=== PATIENT | female | born 1935 | race Caucasian/White ===

== ENCOUNTER 2016-07-03 12:18 | Inpatient (IN) | payer MEDICARE ==
[~2016-07-03] VITALS: Ht 165.1 cm; Wt 87.4 kg
[2016-07-06] MEDS ORDERED: AMLO5TAB2 PO (09:30)
[2016-07-06] MEDS ORDERED: TOPR100T PO (09:32)
[2016-07-06] MEDS ORDERED: CLON0.1T PO (12:06)
[2016-07-06] MEDS ORDERED: LORA1TAB12 PO (12:07)
[2016-07-06] MEDS ORDERED: PROT40TA PO (12:08)
[2016-07-06] MEDS ORDERED: LEVO.125 PO (12:08)
[2016-07-06] MEDS ORDERED: VITA100064 PO (12:09)
--- NOTE | 2016-07-14 10:11 | MH ---
cc: ANT GONZALEZ,QUIRINO Woodward MD DATE OF ADMISSION: 07/15/2016 ADMISSION DIAGNOSIS Osteoarthritis of the right knee, varus deformity right knee, pain right knee. HISTORY The patient is an 81-year-old white female who has experienced pain of her right knee of approximately 2-1/2 years duration. She had originally noted the onset of pain involving both knees for which she was diagnosed as having an arthritic condition, becoming more pronounced with the passage of time and had subsequently undergone evaluation and treatment at the [facility] in [place] where she had been treated in the past for history of cancer of her left breast that did require a lumpectomy as well as a benign thyroid condition. She had established herself with a primary care physician in that area and as a result was subsequently referred to a local orthopedic surgeon who completed a left total knee arthroplasty in the fall of 2015 at [facility] in [place] with Dr. Maia Aguilar. The patient had difficulty throughout her postoperative period that was complicated by an ileus that required an extended hospital stay. She presented to the undersigned physician in February of this year reporting ongoing pain about her right knee for which x-ray studies revealed obvious degenerative changes with [id number] apposition about the medial compartment associated with a varus deformity of at least 10 degrees magnitude. Findings and treatment options were reviewed with the patient at that time. Initially she elected to continue with conservative management but continued to note lingering symptoms about her right knee for which she returned to the office in follow-up disposition in April of this year. At that time findings and treatment options were reviewed. The pros and cons of continuing with conservative management versus operative intervention that would involve a total knee arthroplasty were outlined in detail. Emphasis was made regarding the fact that the decision to proceed with surgery would be left entirely to the patient's discretion. She indicated that she was incapacitated to such degree that she was desirous of proceeding with such treatment and in compliance with her wishes she was scheduled for admission at this time in order that a right total knee arthroplasty be accomplished. PAST MEDICAL HISTORY, HOSPITALIZATIONS AND SURGERIES 1. Left total knee arthroplasty as described. 2. Lumpectomy of the left breast followed by radiation therapy for a history of carcinoma. 3. A partial thyroidectomy of her right lobe for history of nodule disease that apparently was nonmalignant in nature 4. Tonsillectomy. 5. Vaginal hysterectomy. 6. Laparoscopic cholecystectomy. 7. Colonoscopy. 8. Bilateral cataract excision with intraocular lens implants. 9. Excision of skin cancers of the right lower extremity. 10. Medical management for hyponatremia apparently related to use of diuretics. MEDICAL ILLNESSES 1. Hypertension. 2. Stress disorder. 3. Hypothyroidism. 4. GERD syndrome. CURRENT MEDICATIONS 1. Toprol XL 100 mg daily. 2. Amlodipine 5 mg daily. 3. Clonidine 0.1 mg twice daily. 4. Lorazepam 1 mg daily. 5. Synthroid 0.125 mg daily. 6. Protonix 40 mg daily. She also takes supplements daily including probiotics, vitamin C and vitamin D. ALLERGIES The patient describes drug allergies to - CODEINE which has been associated with shortness of breath. SULFA has caused nausea and itching. DIURETICS have been associated with hyponatremia. CONTRAST DYE has caused nausea and rash formation. She has tolerated both Dilaudid and Demerol for pain management in the past. REVIEW OF SYSTEMS Denies headache, seizure or syncope. Occasional sinus congestion as related to environmental agents. No epistaxis. Auditory acuity intact. No tinnitus. No bleeding gums or dysphagia. Denies cough, shortness of breath, upper respiratory infection, pneumonia or tuberculosis. No angina or heart disease. She is medically managed for hypertension. Appetite good. Bowel movements regular. No hepatitis, ulcers or hemorrhoids. She is status post cholecystectomy. History of urinary tract infection. No kidney stones. No history of fractures. No psychiatric illness. Her remaining review of systems is unremarkable and noncontributory. FAMILY HISTORY 18 years, this being a third marriage. 80 years of age and described as being in good health. One son and two daughters. Her son is status post liver transplant for history of hepatitis as related to ethanol abuse. Family history is otherwise positive for diabetes, Parkinson's disease and bladder cancer. SOCIAL HISTORY The patient completed two years of college education. She is a housewife. She denies active use of tobacco. Ethanol consumption socially. PHYSICAL EXAMINATION VITAL SIGNS: Height 5 feet, 5-1/2 inches, weight 189 pounds. GENERAL: An alert, oriented and responsive 80-year-old white female who sits quietly upon the examination table with no obvious distress. HEAD, EYES, EARS, NOSE, AND THROAT: Pupils equally round and reactive to light. Extraocular movements full. Sclerae clear. External nares clear. External auditory canals clear. Dental intact. Mucous membranes pink and moist. Pharynx clear. NECK: Supple. Active range of motion with no appreciable pain. Carotid pulse palpable bilaterally. Trachea midline. Thyroid without enlargement. LUNGS: Clear to auscultation and percussion. No CVA tenderness. No discomfort throughout the dorsolumbar spine. HEART: Regular rhythm. No murmur or gallop. ABDOMEN: Soft, nontender. Bowel sounds present. PELVIC: Per primary care physician. EXTREMITIES: Right Knee - There is a mild fullness about the knee consistent with redundancy of soft tissue. No obvious intraarticular effusion. Medial joint line tenderness. Apprehension and compression sign negative. 5-95 degree range of motion with crepitation elicited and mild discomfort at the extreme of flexion. No collateral ligamentous instability. Nicky test and drawer sign negative. Pivot shift and Zev sign positive for medial compartment pain. Straight-leg raising unremarkable at 80 degrees satisfactory mobility of the right hip with no associated pain. Antalgic gait. NEUROLOGIC: Cranial nerves II-XII grossly intact. IMPRESSION Osteoarthritis right knee, varus deformity right knee, pain right knee PLAN Right total knee arthroplasty. The nature of the planned surgical procedure, the potential complications and risks associated, the expectations of surgery and the consent form were thoroughly reviewed with the patient in the presence of her [id number] prior to admission to the hospital. Agata has indicated her full understanding regarding all of the above and given consent to proceed with treatment as outlined. Medical evaluation and clearance for surgery will be completed by her primary care physician, Dr. Matt Isbell. Ant Gonzalez MD NBS/SSB /11:58 AM /10:08 AM
--- NOTE | 2016-07-14 17:31 | MH ---
cc: ANT MENARD DATE OF ADMISSION 07/15/2016 ADDENDUM The patient is an 81-year-old white female who has had a rather lengthy history of pain involving her right knee as related to osteoarthritis. In her past, she had conformed to conservative management involving osteoarthritis of both knees which had included use of anti-inflammatory medication, cortisone injections and modified activities with some brief therapy intervention having been completed. with the passage of time, the patient became increasingly more symptomatic with pain that did result in her undergoing a left total knee arthroplasty within the past year. The patient was able to appreciate overall improvement at that time but continued to remain symptomatic with ongoing pain about her right knee with x-ray studies confirming the presence of severe degenerative changes with near [id number] apposition about the medial compartment associated with a varus deformity of almost 10 degrees magnitude. Given the progressive nature of her pain and her failure to respond to continued conservative modalities as outlined above, the patient has expressed her desire to proceed with operative intervention involving her right knee that would include a total knee arthroplasty. In compliance with her wishes, she was scheduled for admission at this time. MD REILLY Leach/ /5:19 PM /5:26 PM
[2016-07-15] MEDS ORDERED: INSULIN HUMAN REGULAR 1,000 UNITS/10 ML VIAL SQ PRN (06:00)
[2016-07-15] MEDS ORDERED: METOPROLOL TARTRATE 25 MG TAB PO PRN (06:00)
[2016-07-15] MEDS: LACTATED RINGER'S 1000 ML IV SCH (06:00)
[2016-07-15] MEDS: POVIDONE IODINE 7.5% SCRUB 118 ML BOTTLE TOPICAL SCH (06:00)
[2016-07-15] MEDS ORDERED: ceFAZolin 2 GM PREMIX 50 ML IV SCH (06:00)
[2016-07-15] MEDS ORDERED: BENA25TA3 PO (06:03)
[2016-07-15 06:04] VITALS: BP 183/78; PULSE 70; RESP 16; TEMP 97.8; O2SAT 98
[2016-07-15 06:25] VITALS: PULSE 65
[2016-07-15] MEDS ORDERED: MIDAZOLAM HCL 5 MG/5 ML VIAL ONE (06:31)
[2016-07-15] MEDS ORDERED: ceFAZolin INJ 1,000 MG VIAL ONE (06:41)
[2016-07-15] MEDS ORDERED: SODIUM CHLORIDE 0.9% 20 ML VIAL ONE (06:42)
[2016-07-15] MEDS ORDERED: ALVIMOPAN 12 MG CAPSULE PO SCH (07:15)
[2016-07-15] MEDS ORDERED: SODIUM CHLORID 0.9% 500 ML IV SCH (07:30)
[2016-07-15] MEDS ORDERED: TRANEXAMIC ACID 1 GM PRIOR TO PROCEDURE IV SCH ×2 (07:30)
[2016-07-15] MEDS ORDERED: TRANEXAMIC ACID INJ 1,000 MG/10 ML AMP IV ONE (07:53)
[2016-07-15] MEDS: DEXT 5%-NACL 0.45% 1000 ML INJ 1,000 ML IV SCH ×2 (09:36→10:01)
[2016-07-15] MEDS ORDERED: *morphine SULFATE 8 MG/ML PERIprocedure ONLY ONE ×2 (09:40→09:49)
[2016-07-15] MEDS ORDERED: MISCELLANEOUS PHARMACY INFORMATION XX ONE (09:45)
[2016-07-15] MEDS ORDERED: ZOLPIDEM TARTRATE 5 MG TAB PO PRN (09:45)
[2016-07-15] MEDS ORDERED: ACETAMINOPHEN 325 MG TAB PO PRN (09:45)
[2016-07-15] MEDS ORDERED: diphenhydrAMINE HCL 50 MG/ML VIAL IV PRN (09:45)
[2016-07-15] MEDS ORDERED: ONDANSETRON HCL 4 MG/2 ML VIAL IVP PRN (09:45)
[2016-07-15] MEDS ORDERED: HYDROmorphone HCL PCA 6 MG/30 ML IV SCH (09:45)
[2016-07-15] MEDS ORDERED: HYDROmorphone HCL PF 2 MG/ML VIAL IV PRN (09:45)
[2016-07-15] MEDS ORDERED: DOCUSATE SODIUM 100 MG CAP PO PRN (09:45)
[2016-07-15] MEDS ORDERED: SODIUM CHLORIDE 0.9% FLUSH 5 ML FLUSH IVF PRN (09:45)
[2016-07-15] MEDS ORDERED: NALOXONE HCL 0.4 MG/ML AMP IV PRN (09:45)
[2016-07-15] MEDS ORDERED: Post-op Orders (for Pharmacy) MISC XX ONE (09:45)
[2016-07-15] MEDS ORDERED: TRANEXAMIC ACID INJ 1,000 MG in SODIUM CHLORIDE 0.9% INJ 100 ML IV SCH (09:45)
[2016-07-15] MEDS ORDERED: TRANEXAMIC ACID 1 GM POST-OP IV SCH ×2 (10:30)
[2016-07-15] MEDS ORDERED: ROPIVACAINE 0.5% PF INJ 30 ML VIAL NERV BLOCK ONE (10:31)
[2016-07-15] MEDS ORDERED: DEXAMETHASONE SOD PHOS PF 10 MG/ML VIAL IV ONE (10:31)
--- NOTE | 2016-07-15 10:35 | RADRPT ---
EXAM DATE/TIME: 07/15/2016 10:02 [facility] COMPARISON: No previous studies available for comparison. INDICATIONS : Post-op right knee. MEDICAL HISTORY : Carcinoma, breast SURGICAL HISTORY : Lumpectomy. ENCOUNTER: Initial ACUITY: 1 day PAIN SCORE: 0/10 LOCATION: Right Knee. FINDINGS: Examination of the knee demonstrates arthroplasty in satisfactory position. The alignment is anatomic . CONCLUSION: Post surgical changes as above. Prabhakar Estrada MD on July 15, 2016 at 10:34 Board Certified Radiologist. This report was verified electronically.
[2016-07-15] MEDS ORDERED: DO NOT ADM ANY ANTICOAGULANT DRUGS XX PRN (10:45)
[2016-07-15 11:50] VITALS: BP 137/66; PULSE 70; RESP 16; TEMP 95.7; O2SAT 98
[2016-07-15] MEDS ORDERED: PROPOFOL 200 MG/20 ML AMP IV ONE (11:52)
[2016-07-15] MEDS ORDERED: ONDANSETRON HCL 4 MG/2 ML VIAL IV PUSH ONE (11:53)
[2016-07-15] MEDS ORDERED: LACTATED RINGER'S 1000 ML INJ 1,000 ML IV ONE (11:53)
[2016-07-15] MEDS ORDERED: NEOSTIGMINE METHYLSULFATE 10 MG/10 ML VIAL IV PUSH ONE (11:53)
[2016-07-15] MEDS ORDERED: ePHEDrine/NS 25 MG/5 ML SYR IV ONE (11:53)
[2016-07-15] MEDS ORDERED: fentaNYL CITRATE 250 MCG/5 ML AMP ONE (13:31)
[2016-07-15] MEDS: PCA - TOTAL MG DILAUDID DELIVERED PER SHIFT SCH ×2 (14:00→22:00)
[2016-07-15 16:00] VITALS: BP 173/83; PULSE 80; RESP 16; TEMP 96.1; O2SAT 93
[2016-07-15] MEDS: PANTOPRAZOLE SOD 40 MG DELAYED RELEASE TAB PO SCH ×2 (20:00→23:37)
[2016-07-15] MEDS ORDERED: diphenhydrAMINE HCL 25 MG CAP PO PRN (20:00)
[2016-07-15] MEDS ORDERED: METOCLOPRAMIDE HCL 10 MG/2 ML VIAL IV PUSH PRN (20:15)
--- NOTE | 2016-07-15 20:21 | PD.CONS ---
HPI Service [facility] Consult Requested By Jeff Miller Reason for Consult Medical management Primary Care Physician Unknown Diagnoses: History of Present Illness Assessment a 1-year-old female with past medical history of arthritis, who presents to [facility] for elective right knee arthroplasty. As per patient and Dr. rodriguez documentation the patient has had been having chronic right knee pain for the past 2-1/2 years. Initially the pain involving both knees and the time she was diagnosed having an arthritic condition. This condition worsen over time. The patient was evaluated at [facility] in [place] where she had been treated in the past for history of cancer of the left breast which required lumpectomy as well as permanent thyroid condition. The patient was referred by her primary care physician to a local orthopedic surgeon who performed a left total knee arthroplasty in the fall of 2015 at [facility] in [place] with Dr. Maia Aguilar. The patient has some difficulty throughout her postoperative period complicated by an ileus that required an extended hospital stay. The patient presented to see Dr rodriguez on February the past year for ongoing pain on her right knee for which x-rays revealed degenerative changes with bone on bone apposition about the medial compartment associated with a varus deformity. Initially conservative management was pursued by the patient for which the patient return to be seen on April by the orthopedic surgeon. The patient and decided to undergo elective right knee arthroplasty. Patient currently has some right knee pain, denies chest pain, short of breath, she states that she feels nauseated despite having been administered IV Zofran 1 hour ago. Denies vomiting. The patient also states she feels very distended and gassy. Denies having passed gas. Review of Systems As per history of present illness, other systems reviewed by me and negative. Past Family Social History Allergies: Coded Allergies: Codeine (Verified Allergy, Severe, Respiratory Failure, 07/15/16) Hydrochlorothiazide (Verified Allergy, Severe, Dehydration, 07/15/16) DIURETICS CAUSE LOW SODIUM LEVELS Contrast Media (Verified Allergy, Intermediate, NAUSEA, RASH, FLUSHING, ) Sulfa (Verified Allergy, Intermediate, Rash, 07/15/16) Keflex (Verified Adverse Reaction, Intermediate, vomit, 07/15/16) denies allergy to keflex Uncoded Allergies: diuretics (Allergy, Severe, 11/06/12) Past Medical History 1. History of breast cancer. 2. Thyroid nodule. 3. Also arthritis. 4. Hyponatremia related to diuretic use. 5. Hypertension. 6. Hypothyroidism. 7. Stress disorder. 8. GERD syndrome. Past Surgical History 1. Left total knee arthroplasty. 2. Lumpectomy of the left breast followed by radiation therapy for history of carcinoma. 3. Partial thyroidectomy of the right lobe for history of thyroid nodule that apparently was nonmalignant in nature. 4. Tonsillectomy. 5. Vaginal hysterectomy. 6. Laparoscopic cholecystectomy. 7. Colonoscopy. 8. Bilateral cataract excision with intraocular lens implants. 9. Excision of skin cancer of the right lower extremity. Reported Medications Benadryl Allergy (Diphenhydramine HCl) 25 Mg Tab 25 Mg PO Q6H PRN Vitamin D (Cholecalciferol) 1,000 Unit Tab 2,000 Units PO DAILY Protonix (Pantoprazole Sodium) 40 Mg Tab 40 Mg PO DAILY Synthroid (Levothyroxine Sodium) 125 Mcg Tab 125 Mcg PO DAILY Lorazepam 1 Mg Tab 1 Mg PO HS PRN Clonidine (Clonidine HCl) 0.1 Mg Tab 0.1 Mg PO BID Toprol XL (Metoprolol Succinate) 100 Mg Tab 100 Mg PO HS Amlodipine (Amlodipine Besylate) 5 Mg Tab 5 Mg PO DAILY Active Ordered Medications Current Medications Medications (Trade) Dose Ordered Sig/Iram Route Start Time Stop Time Status Last Admin Lactated Ringer's 1,000 ml @ 30 mls/hr Q24H IV 07/15/16 07:30 07/15/16 06:00 (NS 500 ml Inj) 500 ml @ 30 mls/hr [id number] IV 07/15/16 07:30 07/16/16 07:29 (Betadine 7.5% Scrub) 1 applic ONCE TOPICAL 07/15/16 06:00 07/18/16 05:59 07/15/16 06:00 (Entereg) 12 mg NOW PO 07/15/16 07:15 07/16/16 07:14 07/15/16 07:17 (Entereg) 12 mg BID PO 07/16/16 09:00 07/22/16 21:01 (NS Flush) 2 ml UNSCH PRN IVF 07/15/16 09:45 IV Flush 2 ml 2 ml BID IVF 07/15/16 21:00 (Ancef Inj/NS Inj) 100 ml @ 200 mls/hr Q6H IV 07/15/16 14:00 07/16/16 02:29 07/15/16 14:00 (Xarelto) 10 mg Q24H PO 07/16/16 08:00 (Dilaudid Pf Inj) 1 mg Q3H PRN IV 07/15/16 09:45 (Tylenol) 650 mg Q6H PRN PO 07/15/16 09:45 (Zofran Inj) 4 mg Q6H PRN IVP 07/15/16 09:45 07/15/16 19:28 (Colace) 100 mg BID PRN PO 07/15/16 09:45 Zolpidem Tartrate 5 mg 5 mg HS PRN PO 07/15/16 09:45 (D5W-1/2 NS 1000 ml Inj) 1,000 ml @ 125 mls/hr Q8H IV 07/15/16 09:36 07/15/16 10:01 (Dilaudid) 4 mg Q4H PRN PO 07/15/16 09:45 (Narcan Inj) 0.4 mg UNSCH PRN IV 07/15/16 09:45 (Benadryl Inj) 25 mg Q6H PRN IV 07/15/16 09:45 (Dilaudid [employer] Inj) 6 mg UNSCH IV 07/15/16 09:45 07/17/16 09:44 07/15/16 10:01 PARTNER C[employer] Dosage Infused (Pha) 1 Q8HR .XX 07/15/16 14:00 07/17/16 13:59 07/15/16 14:00 (Entereg) 12 mg Q12HR PO 07/15/16 21:00 07/22/16 20:59 Miscellaneous Information ALL NURSING DEPARTME... UNSCH PRN XX 07/15/16 10:45 07/16/16 10:44 Family History Patient has 1 son and 2 daughters. Her son is status post liver transplant for history of hepatitis as related to ethanol abuse. Family history is otherwise positive for diabetes, Parkinson's disease and bladder cancer. Social History Patient denies active use of tobacco. Drinks alcohol socially. The patient completed 2 years of college education. Physical Exam Vital Signs Vital Signs Date Time Temp Pulse Resp B/P Pulse Ox O2 Delivery O2 Flow Rate FiO2 3/29/17 16:00 96.1 80 16 173/83 93 07/15/16 11:50 95.7 70 16 137/66 98 07/15/16 10:30 97.4 65 14 144/71 98 Nasal Cannula 2 07/15/16 10:15 68 14 167/79 98 Nasal Cannula 2 07/15/16 10:01 14 07/15/16 10:00 66 14 155/77 100 Nasal Cannula 2 07/15/16 09:45 64 14 141/71 100 Nasal Cannula 2 07/15/16 09:31 98.2 66 14 143/66 97 Nasal Cannula 3 07/15/16 06:25 99 Nasal Cannula 3 07/15/16 06:25 65 07/15/16 06:04 97.8 70 16 183/78 98 Physical Exam GENERAL: This is a well-nourished, well-developed patient, in no apparent distress. SKIN: No rashes, ecchymoses or lesions. Cool and dry. HEAD: Atraumatic. Normocephalic. No temporal or scalp tenderness. EYES: Pupils equal round and reactive. Extraocular motions intact. No scleral icterus. No injection or drainage. ENT: Nose without bleeding, purulent drainage or septal hematoma. Throat without erythema, tonsillar hypertrophy or exudate. Uvula midline. Airway patent. NECK: Trachea midline. No JVD or lymphadenopathy. Supple, nontender, no meningeal signs. CARDIOVASCULAR: Regular rate and rhythm without murmurs, gallops, or rubs. RESPIRATORY: Clear to auscultation. Breath sounds equal bilaterally. No wheezes , rales, or rhonchi. GASTROINTESTINAL: Abdomen soft, non-tender, nondistended. No hepato-splenomegaly , or palpable masses. No guarding. MUSCULOSKELETAL: Extremities without clubbing, cyanosis, or edema. No joint tenderness, effusion, or edema noted. No calf tenderness. Negative Homans sign bilaterally. NEUROLOGICAL: Awake and alert. Cranial nerves II through XII intact. Motor and sensory grossly within normal limits. Five out of 5 muscle strength in all muscle groups. Normal speech. Laboratory Laboratory Tests Test 07/15/16 06:00 Blood Type A POSITIVE Antibody Screen NEGATIVE Blood Bank Comment Imaging Last Impressions Knee X-Ray 07/15/16 0936 Signed Impressions: Service Date/Time: Friday, July 15, 2016 10:02 - CONCLUSION: Post surgical changes as above. Prabhakar Estrada MD Assessment and Plan Problem List: (1) Osteoarthritis of left knee ICD Code: M17.12 Status: Acute Plan: The patient is a status post left knee arthroplasty. Continue pain control as per orthopedic surgery recommendations. Isn't currently on a [employer] C[employer] morphine pump. Management as per orthopedic surgery. The patient has history of postoperative disease and has been started by orthopedic surgery on Entereg. Monitor her abdominal exams. (2) HTN (hypertension) ICD Code: I10 Status: Acute Plan: Blood pressure seems to be elevated with systolic blood pressure in the 160s to 170s. I will restart home antihypertensive medications which include Toprol-XL, amlodipine and clonidine. Continue to monitor vital signs. (3) Hypothyroidism ICD Code: E03.9 Status: Acute Plan: Check TSH. Continue levothyroxine. (4) Anxiety ICD Code: F41.9 Status: Acute Plan: Continue lorazepam 1 mg daily as needed for anxiety. (5) Nausea ICD Code: R11.0 Status: Acute Plan: Continue IV Zofran. I will write for Phenergan if Zofran ineffective. Assessment and Plan GI prophylaxis: Continue Protonix. DVT prophylaxis: Place on chemoprophylaxis as per orthopedic surgery recommendations. Discussed Condition With Patient Problem Qualifiers (1) HTN (hypertension): Qualified Code: I10 - Essential hypertension (2) Hypothyroidism: Qualified Code: E89.0 - Postoperative hypothyroidism Louis Mora MD Jul 15, 2016 20:21
[2016-07-15] MEDS: METOPROLOL SUCCINATE 50 MG EXTENDED RELEASE TAB PO SCH ×2 (21:00→22:09)
[2016-07-15] MEDS: ALVIMOPAN 12 MG CAPSULE PO SCH (21:13)
[2016-07-15] MEDS: cloNIDine HCL 0.1 MG TAB PO SCH (22:07)
[2016-07-15] MEDS: amLODIPine BESYLATE 5 MG TAB PO SCH (22:16)
[2016-07-15] MEDS: LORazepam 1 MG TAB PO PRN (22:16)
[2016-07-16] VITALS (7 sets, daily range): BP systolic 104–154; BP diastolic 51–69; PULSE 62–79; RESP 18–20; TEMP 95.3–98.4; O2SAT 95–97
[2016-07-16] MEDS: HYDROmorphone HCL 4 MG TAB PO PRN ×3 (01:54→21:52)
[2016-07-16] MEDS: DEXT 5%-NACL 0.45% 1000 ML INJ 1,000 ML IV SCH ×3 (01:56→17:10)
[2016-07-16] MEDS: SODIUM CHLORIDE 0.9% FLUSH 5 ML FLUSH IVF SCH ×2 (01:57→08:31)
[2016-07-16] MEDS: PCA - TOTAL MG DILAUDID DELIVERED PER SHIFT SCH ×2 (06:00→14:00)
[2016-07-16] MEDS: POVIDONE IODINE 7.5% SCRUB 118 ML BOTTLE TOPICAL SCH (06:00)
[2016-07-16] MEDS ORDERED: DILA4TAB2 PO (06:08)
[2016-07-16] MEDS ORDERED: ASPI325T PO (06:08)
--- NOTE | 2016-07-16 06:10 | HHI.FF ---
Face to Face Verification Diagnosis: (1) DJD (degenerative joint disease) of knee Physical Therapy Gait training Knee: Total knee, Protocol: Right, Full weight bearing Right LE Weight Bearing: WB as tolerated Right LE Range of Motion: Active ROM Nursing Dressing Changes: Daily dressing change I have seen patient Agata Rosen on 07/16/16. My clinical findings support the need for the requested home health care services because: Limited ability to care for self High risk of falls I certify that my clinical findings support that this patient is homebound because: Post-op weakness Unsteady gait/balance Unsafe to leave home unassisted Jeff Gonzalez MD Jul 16, 2016 06:10
[2016-07-16] MEDS ORDERED: WALKER WHEELS/F1 MIS (06:12)
[2016-07-16] MEDS: LEVOTHYROXINE SODIUM 125 MCG TAB PO SCH (06:59)
[2016-07-16] MEDS: LACTATED RINGER'S 1000 ML IV SCH (07:30)
[2016-07-16] MEDS: PANTOPRAZOLE SOD 40 MG DELAYED RELEASE TAB PO SCH (08:28)
[2016-07-16] MEDS: ALVIMOPAN 12 MG CAPSULE PO SCH ×4 (08:29→20:34)
[2016-07-16] MEDS: cloNIDine HCL 0.1 MG TAB PO SCH ×2 (08:29→20:34)
[2016-07-16] MEDS: RIVAROXABAN 10 MG TAB PO SCH (08:29)
[2016-07-16] MEDS: amLODIPine BESYLATE 5 MG TAB PO SCH (08:30)
[2016-07-16] MEDS: CHOLECALCIFEROL (VIT D3) 1000 UNIT TAB PO SCH (08:31)
[2016-07-16 12:16] LABS: HEMATOCRIT 31.3 % (35.0-46.0); REVIEW FLAG FINAL
[2016-07-16 16:08] LABS: BICARBONATE 27.5 MEQ/L (21.0-32.0); POTASSIUM 4.3 MEQ/L (3.5-5.1)
[2016-07-16] MEDS: METOPROLOL SUCCINATE 50 MG EXTENDED RELEASE TAB PO SCH (20:34)
[2016-07-16] MEDS: LORazepam 1 MG TAB PO PRN (20:52)
[2016-07-17 04:00] VITALS: BP 139/65; PULSE 72; RESP 16; TEMP 97.1; O2SAT 97
[2016-07-17] MEDS: HYDROmorphone HCL 4 MG TAB PO PRN ×2 (05:25→13:25)
[2016-07-17] MEDS: LEVOTHYROXINE SODIUM 125 MCG TAB PO SCH (05:47)
[2016-07-17] MEDS: PCA - TOTAL MG DILAUDID DELIVERED PER SHIFT SCH (06:00)
[2016-07-17] MEDS: POVIDONE IODINE 7.5% SCRUB 118 ML BOTTLE TOPICAL SCH (06:00)
[2016-07-17] MEDS ORDERED: PANTOPRAZOLE SOD 40 MG DELAYED RELEASE TAB PO SCH (07:00)
[2016-07-17 07:19] LABS: HEMATOCRIT 30.7 % (35.0-46.0); REVIEW FLAG FINAL
[2016-07-17] MEDS: LACTATED RINGER'S 1000 ML IV SCH (07:30)
[2016-07-17 08:00] VITALS: BP 146/67; PULSE 70; RESP 18; TEMP 96.4; O2SAT 97
[2016-07-17] MEDS: SODIUM CHLORIDE 0.9% FLUSH 5 ML FLUSH IVF SCH (09:00)
[2016-07-17] MEDS: ALVIMOPAN 12 MG CAPSULE PO SCH ×2 (09:00→09:44)
[2016-07-17] MEDS: DEXT 5%-NACL 0.45% 1000 ML INJ 1,000 ML IV SCH (09:36)
[2016-07-17] MEDS: CHOLECALCIFEROL (VIT D3) 1000 UNIT TAB PO SCH (09:43)
[2016-07-17] MEDS: cloNIDine HCL 0.1 MG TAB PO SCH (09:43)
[2016-07-17] MEDS: RIVAROXABAN 10 MG TAB PO SCH (09:43)
[2016-07-17 12:00] VITALS: BP 136/64; PULSE 65; RESP 18; TEMP 97.2; O2SAT 98
--- NOTE | 2016-07-17 12:06 | HHI.PR ---
Subjective Remarks Doing well, resting in bed, no acute issue no fever or chills or chest pain or short of breath Objective Vitals Vital Signs Date Time Temp Pulse Resp B/P Pulse Ox O2 Delivery O2 Flow Rate FiO2 07/17/16 08:00 96.4 70 18 146/67 97 07/17/16 04:00 97.1 72 16 139/65 97 07/16/16 20:00 98.4 79 18 154/68 97 07/16/16 16:00 98.2 69 18 134/63 97 I/O 07/16/16 07/16/16 07/16/16 07/17/16 07/17/16 07/17/16 07:00 15:00 23:00 07:00 15:00 23:00 Intake Total 1080 ml 480 ml Output Total 250 ml 20 ml Balance 830 ml 460 ml Intake Oral 1080 ml 480 ml Output Drainage Total 250 ml 20 ml # Voids 6 1 # Bowel Movements 0 Result Diagram: 07/17/16 0554 07/16/16 1530 Objective Remarks GENERAL: This is a well-nourished, well-developed patient, in no apparent distress. CARDIOVASCULAR: Regular rate and rhythm without murmurs, gallops, or rubs. RESPIRATORY: Clear to auscultation. Breath sounds equal bilaterally. No wheezes , rales, or rhonchi. GASTROINTESTINAL: Abdomen soft, non-tender, nondistended. Normal active bowel sounds MUSCULOSKELETAL: Extremities without clubbing, cyanosis, or edema. NEURO: Alert & Oriented x4 to person, place, time, situation. Moves all ext x4 A/P Problem List: (1) Osteoarthritis of left knee ICD Code: M17.12 Status: Acute (2) HTN (hypertension) ICD Code: I10 Status: Acute (3) Hypothyroidism ICD Code: E03.9 Status: Acute (4) Anxiety ICD Code: F41.9 Status: Acute (5) Nausea ICD Code: R11.0 Status: Acute Assessment and Plan 07/17/16: Patient doing well no acute issue, medically cleared for discharge A/R: (1) Osteoarthritis of left knee ICD Code: M17.12 Status: Acute Plan: The patient is a status post left knee arthroplasty. Continue pain control as per orthopedic surgery recommendations. Isn't currently on a [employer] morphine pump. Management as per orthopedic surgery. The patient has history of postoperative disease and has been started by orthopedic surgery on Entereg. Monitor her abdominal exams. (2) HTN (hypertension) ICD Code: I10 Status: Acute Plan: Blood pressure seems to be elevated with systolic blood pressure in the 160s to 170s. I will restart home antihypertensive medications which include Toprol-XL, amlodipine and clonidine. Continue to monitor vital signs. (3) Hypothyroidism ICD Code: E03.9 Status: Acute Plan: Check TSH. Continue levothyroxine. (4) Anxiety ICD Code: F41.9 Status: Acute Plan: Continue lorazepam 1 mg daily as needed for anxiety. (5) Nausea ICD Code: R11.0 Status: Acute Plan: Continue IV Zofran. I will write for Phenergan if Zofran ineffective. Assessment and Plan GI prophylaxis: Continue Protonix. DVT prophylaxis: Place on chemoprophylaxis as per orthopedic surgery recommendations. Problem Qualifiers (1) HTN (hypertension): Qualified Code: I10 - Essential hypertension (2) Hypothyroidism: Qualified Code: E89.0 - Postoperative hypothyroidism Geo Turner MD Jul 17, 2016 12:06
--- NOTE | 2016-07-17 13:52 | MP ---
cc: ANT MENARD DATE OF SURGERY: 07/15/2016 PREOPERATIVE DIAGNOSIS Osteoarthritis of the right knee, varus deformity of the right knee, and pain of the right knee. POSTOPERATIVE DIAGNOSIS Osteoarthritis of the right knee, varus deformity of the right knee, and pain of the right knee. PROCEDURE Right total knee arthroplasty. SURGEON Lisa ANESTHESIA General endotracheal. INDICATIONS This is an 81-year-old white female with a several-year history of bilateral knee pain as related to osteoarthritis. She had been treated conservatively in the past which included the use of anti-inflammatory medication, steroid injections and limited therapy intervention. With the passage of time she became increasingly more symptomatic with pain and subsequently underwent orthopedic evaluation and disposition in the [place], [place] area. The diagnosis of osteoarthritis of her knees bilaterally was confirmed and the patient subsequently underwent a left total knee arthroplasty completed in the Fall of this past year. The patient describes some difficulty throughout her postoperative period that was complicated by an ileus that required an extended hospital stay. She later presented to the undersigned physician in February of this past year reporting ongoing pain involving her right knee. X-ray studies revealed obvious degenerative changes with [id number] apposition about the medial compartment associated with a varus deformity of at least 10 degrees magnitude. Findings and treatment options were reviewed with the patient at that time. The pros and cons of continuing with additional conservative management versus operative intervention that would involve a total knee arthroplasty were outlined in detail. Emphasis was made regarding the fact that the decision to proceed with surgery would be left entirely to the patient's discretion. The patient felt that her symptoms were at such a degree that she was ready to proceed with operative intervention as discussed, and in compliance with her wishes she was scheduled for admission at this time in order that the above be accomplished. FORMAT Following the induction of satisfactory general anesthesia by endotracheal intubation as completed per the Department of Anesthesia, a tourniquet was established around the proximal portion of the right lower extremity. The extremity proper was isolated with a U-drape thereafter being prepped with Betadine solution and draped into a sterile field in the routine manner. Prior to initiation of the actual procedure the standard timeout protocol was completed. All parameters were appropriately addressed and confirmed by operating room personnel. The extremity was elevated for approximately one minute and the tourniquet thus inflated to 250 mmHg pressure. A sharp skin incision was initiated midline over the anterior aspect of the knee and developed through underlying subcutaneous tissue with hemostasis maintained by electrocautery. By deepening dissection the anterior capsule was exposed, a medial capsulotomy completed and the patella subluxed in a lateral orientation. Examination of the joint space revealed severe degenerative changes of a tricompartmental nature but being most pronounced about the medial compartment where there was complete erosion of articular cartilage and underlying subchondral bone exposed. The articular surface of the patella was resected with power saw. The three-hole guide was utilized for establishing post holes. The anterior cruciate ligament as well as medial and lateral meniscus structures were sharply excised. A centering hole was placed in the distal aspect of the femur allowing positioning of the intramedullary guide. The distal femoral cutting jig was attached and the distal femur resected. AP measurement noted 67.5 mm sizing to be appropriate. The matching cutting block was positioned, anterior, posterior and chamfer cuts were completed. The tibial plateau was thereafter subluxed in an anterior orientation allowing positioning of the extramedullary guide. The tibial plateau was resected and measured with 75 mm sizing determined to be satisfactory. A trial reduction followed utilizing a 67.5 mm anatomic femoral component, a 75 mm tibial base with a 10 mm bearing insert. The knee readily and was carried through a passive range of motion with stability noted at both 0 and 90 degrees flexed posture. There was no appreciable ligamentous instability to varus valgus stress. Orientation was confirmed as being appropriate with measurement of the pelvic guide through the mechanical axis of the knee. A trial reduction followed utilizing a 34 mm standard patellar button. Once again good tracking was demonstrated with no tendency toward subluxation. All trial components being removed the remaining portion of the proximal tibia was prepared for insertion of the permanent component. The joint space was thoroughly lavaged with pulsating antibiotic solution, hemostasis maintained by electrocautery. An autogenous bone plug was inserted into the distal femoral guide hole and thereafter preparation of Bandy bone cement was utilized in inserting knee components in a sequential fashion which included a 75 mm fixed cruciate tibial base to which a 10 mm Vanguard tibial bearing insert was secured with locking jay. The 67.5 mm Vanguard femoral component was firmly seated onto the distal femur. Excess cement being removed, the knee was brought to full extension and thereafter the 34 mm standard three-post patellar button was attached and maintained in place with patellar clamp while cement hardening was completed. Final range of motion assessment noted good tracking and stability throughout the knee. Irrigation was repeated with hemostasis maintained. Autovac drain tubes were inserted through superior stab wounds. The capsule was repaired with 0 Vicryl suture. The remaining portion of the wound was closed in layers in the routine manner, skin margins being re-approximated with a running subcuticular 3-0 Vicryl suture over which Steri-Strips were applied. Xeroform gauze and a bulky dry sterile dressing were placed. The tourniquet was deflated after 40 minutes of tourniquet time, the extremity being supported in a canvas knee splint. Anesthesia was discontinued and she was thereafter transferred to a hospital bed and returned to the recovery room in satisfactory condition having tolerated her operative procedure well. The estimated blood loss was approximately 100 cc as determined per Anesthesia. All implants were of the Biomet preparer. MD REILLY Leach/BT /9:30 AM /1:28 PM
[2016-07-17] MEDS ORDERED: amLODIPine BESYLATE 5 MG TAB PO SCH (21:00)
--- NOTE | 2016-07-23 08:32 | MD ---
cc: ANT MENARD MD, GREGORY P. MD ADMISSION DATE: 07/15/2016 DISCHARGE DATE: 07/17/2016 ADMITTING DIAGNOSIS Osteoarthritis of the right knee, varus deformity right knee and pain of the right knee. DISCHARGE DIAGNOSIS Osteoarthritis of the right knee, varus deformity right knee and pain of the right knee. HISTORY The patient is an 81-year-old white female who has had a lengthy history of right knee pain. Her history actually extended back almost three years when she became symptomatic with bilateral knee pain as related to osteoarthritis. She had conformed to conservative management in the past which included use of anti-inflammatory medication, steroid injection, and modified therapy intervention. Unfortunately, she became progressively more symptomatic with pain with the passage of time that necessitated undergoing a left total knee arthroplasty that was completed in the [place] area within the past year. The patient had a difficult course postoperatively as related to an ileus, but as this resolved, she began to make satisfactory progress with regards to her overall rehabilitation. Unfortunately during this interval of time, she had remained symptomatic with ongoing pain about her right knee for which she continued to conform to conservative modalities, but became increasingly more symptomatic with pain. She was subsequently seen by the undersigned physician in February of this past year reporting ongoing pain about her right knee. X-ray studies revealed obvious degenerative changes with [id number]-[id number] apposition about the medial compartment associated with a varus deformity of at least 10 degrees magnitude. Findings and treatment options were reviewed with the patient at that time. She initially elected to continue with conservative management, but because of lingering symptoms, she returned to the office in the more recent past indicating that she was having increasing difficulty as related to all activities of daily living and was ready to consider more definitive course of treatment. The involvement of total knee arthroplasty was outlined in detail with emphasis being made that the decision to proceed with surgery will be left entirely to the patient's discretion. The patient felt that her symptoms had progressed to a point in time where she was ready to proceed in this direction and in compliance with her wishes, she was scheduled for admission at this time in order that the above be accomplished. Her physical examination at the time of admission revealed a mild fullness about the right knee that was consistent with redundancy of soft tissue. There was no obvious intra-articular effusion. Medial joint line tenderness. Apprehension and compression sign negative. A 5-95 degrees range of motion with crepitation elicited and discomfort at the extreme of flexion. No collateral ligamentous instability. Nicky test and drawer sign negative. Pivot shift and Zev sign positive for medial compartment pain. Straight-leg raising unremarkable at 80 degrees with satisfactory mobility of the right hip and no associated pain. Antalgic gait. HOSPITAL COURSE Prior to admission to the hospital, the patient had undergone medical evaluation and clearance for surgery as completed by her primary care physician Dr. Matt Isbell. She was taken to the operating room on 15 July 2016 and on that date underwent a right total knee arthroplasty completed in an uncomplicated manner. The patient was noted to have tolerated her operative procedure well and her postoperative course was unremarkable thereafter. Hemoglobin/hematocrit assessment postoperatively was 10.5 and 31.3 respectively. The patient was progressively mobilized under the guidance of physical therapy being permitted weightbearing to tolerance about the right lower extremity. Follow up examination of her surgical wound noted to be intact healing favorably with no evidence of infection. Medical followup per the hospitalist service. DVT prophylaxis initiated. vice president client services consulted to assist with discharge planning. The patient had expressed her desire to be discharged home and continue her rehabilitation on an outpatient basis. Plans were finalized in this regard and pending medical clearance, she was scheduled for discharge on the second postoperative day at which time she was noted to be making favorable progress with regards to her rehab program. She was scheduled be seen in office followup in approximately four weeks. Her condition at the time of discharge was stable. Prognosis favorable. MEDICATIONS Discharge medications included: 1. Dilaudid 4 mg #30 2. Aspirin 325 mg one tablet twice daily for three weeks #40. 3. Entereg 12 mg one tablet twice daily for five days #10. MD REILLY Leach/STEPHEN /6:37 AM /8:25 AM
== END 2016-07-17 13:48 | disposition home health service (06) | DRG 470 ==
LOC: HSDI 07-15 05:29 → N06B 07-15 11:09
PROVIDERS: ADMIT Orthopaedic Surgery; ATTEND Orthopaedic Surgery
PROC: 3E0T3CZ (ICD-10-PCS; 2016-07-15)
PROC: 0SRC0J9 Replacement of Right Knee Joint with Synthetic Substitute, Cemented, Open Approach (ICD-10-PCS; principal; 2016-07-15 07:22)
DX: M17.11 Unilateral primary osteoarthritis, right knee (principal); I10 Essential (primary) hypertension; M21.161 Varus deformity, not elsewhere classified, right knee; K21.9 Gastro-esophageal reflux disease without esophagitis; E89.0 Postprocedural hypothyroidism; G89.29 Other chronic pain; F41.9 Anxiety disorder, unspecified; R11.0 Nausea; Z85.3 Personal history of malignant neoplasm of breast; Z85.828 Personal history of other malignant neoplasm of skin; Z92.3 Personal history of irradiation; Z88.5 Allergy status to narcotic agent; Z88.2 Allergy status to sulfonamides; Z91.041 Radiographic dye allergy status
CPT/HCPCS: 73560; 80048; 81001; 85014; 85018; 86850; 86900; 86901; 88305; 88311; 94150; C1776; J0690; J1100; J1170; J2250; J2270; J2405; J2710; J2765; J2795; J3010; J7120; L1830

== ENCOUNTER → 2016-07-06 | Outpatient (CLI) | payer MEDICARE ==
[~2016-07-06] MED LIST: AMLO5TAB2 PO; AMLO5TAB96 PO; ASPI325T PO; BENA25TA3 PO; CLON0.1T PO; CLON0.3D TD; DILA4TAB2 PO; LEVO.125 PO; LEVO125T48 PO; LORA-474 PO; LORA1TAB12 PO; MACR100C PO; PANT20 PO; PROT40TA PO; TOPR100T PO; TOPR100T15 PO; VITA100064 PO; WALKER WHEELS/F1 MIS
[2016-07-06 10:05] LABS: AUTOMATED NEUTROPHIL # 4.4 TH/MM3 (1.8-7.7); BASOPHIL # 0.1 TH/MM3 (0-0.2); EOSINOPHIL # 0.1 TH/MM3 (0-0.4); EOSINOPHIL % 1.7 % (0.0-4.0); HEMATOCRIT 38.9 % (35.0-46.0); HEMO FLAGS DIFF FINAL; LYMPH % 18.2 % (9.0-44.0); LYMPHOCYTE # 1.2 TH/MM3 (1.0-4.8); MEAN CELL VOLUME 84.3 FL (80.0-100.0); MEAN CORPUSCULAR HEMOGLOBIN 27.2 PG (27.0-34.0); MEAN CORPUSCULAR HGB CONC 32.3 % (32.0-36.0); MONO % 11.2 % (0.0-8.0); NEUT % 67.9 % (16.0-70.0); PLATELET COUNT 276 TH/MM3 (150-450); RED BLOOD COUNT 4.61 MIL/MM3 (4.00-5.30); RED CELL DISTRIBUTION WIDTH 15.4 % (11.6-17.2); WHITE BLOOD COUNT 6.5 TH/MM3 (4.0-11.0)
[2016-07-06 10:11] LABS: INTERNATIONAL NORMALIZED RATIO 0.9 RATIO; PROTHROMBIN TIME - PATIENT 10.4 SEC (9.8-11.6)
[2016-07-06 10:35] LABS: BICARBONATE 30.7 MEQ/L (21.0-32.0); POTASSIUM 4.4 MEQ/L (3.5-5.1)
[2016-07-06 11:56] LABS: BACTERIA, URINE MANY /hpf; BLOOD, URINE NEG (NEG); COMMENT (UR) CATH-CULTURE IND; CULTURE IF INDICATED CATH CULTURE IND; GLUCOSE,URINE NEG (NEG); KETONE, URINE NEG (NEG); MUCUS URINE FEW /lpf (OCC); PH, URINE 6.5 (5.0-8.5); SQUAMOUS EPITHELIAL CELL URINE <1 /hpf (0-5); URINE COLOR LIGHT-YELLOW (YELLW/STRAW)
[2016-07-06 11:59] LABS: NITRITE,URINE POS (NEG)
--- NOTE | 2016-07-06 16:47 | RADRPT ---
EXAM DATE/TIME: 07/06/2016 11:01 [facility] COMPARISON: CHEST SINGLE AP, September 11, 2011, 19:25. INDICATIONS : Evaluate for pneumonia, pneumothorax, or communicable disease. Pre-op knee surgery. MEDICAL HISTORY : Carcinoma, breast. SURGICAL HISTORY : Left lumpectomy. ENCOUNTER: Initial ACUITY: 1 day PAIN SCORE: 0/10 LOCATION: Bilateral chest FINDINGS: The heart is at the upper limits of normal in size. There are chronic interstitial changes throughout the pulmonary parenchyma. Today's examination also demonstrates a well-circumscribed, thin-walled calcification which is likely within the medial aspect of the left breast. This was not seen on previous study dated 09/11/11. The well-circumscribed nature of this would suggest it is likely benign. There degenerative changes throughout the thoracic spine. CONCLUSION: 1. Chronic interstitial changes pulmonary parenchyma. No acute abnormality is seen within the pulmona ry parenchyma. 2. Thin-walled calcification which is very well-circumscribed measuring 3.1 x 2.4 cm in the medial le ft breast. This is uncertain in etiology. Its well-circumscribed nature of this would suggest it is b enign. Bony Norman MD on July 06, 2016 at 16:44 Board Certified Radiologist. This report was verified electronically.
== END ==
LOC: CPRE 09:04
PROVIDERS: ATTEND Orthopaedic Surgery
DX: Z01.812 Encounter for preprocedural laboratory examination (principal); M17.11 Unilateral primary osteoarthritis, right knee; B96.20 Unspecified Escherichia coli [E. coli] as the cause of diseases classified elsewhere; B95.4 Other streptococcus as the cause of diseases classified elsewhere; R82.90 Unspecified abnormal findings in urine
CPT/HCPCS: 36415; 71020; 80048; 81001; 85025; 85610; 87077; 87086; 87186

== ENCOUNTER → 2016-07-13 | Outpatient (CLI) | payer MEDICARE ==
[~2016-07-13] MED LIST changes: -AMLO5TAB96 PO; -CLON0.3D TD; -LEVO125T48 PO; -LORA-474 PO; -MACR100C PO; -PANT20 PO; -TOPR100T15 PO
[2016-07-13 11:03] LABS: BLOOD, URINE NEG (NEG); COMMENT (UR) CATH-CULT NOT IND; CULTURE IF INDICATED CATH CULTURE NOT IND; GLUCOSE,URINE NEG (NEG); KETONE, URINE NEG (NEG); MUCUS URINE FEW /lpf (OCC); NITRITE,URINE NEG (NEG); PH, URINE 6.5 (5.0-8.5); URINE COLOR YELLOW (YELLW/STRAW)
== END ==
LOC: CPRE 10:10
PROVIDERS: ATTEND Orthopaedic Surgery
DX: Z01.812 Encounter for preprocedural laboratory examination (principal); M17.11 Unilateral primary osteoarthritis, right knee
CPT/HCPCS: 81001